=== PATIENT | male | born 1955 | race Caucasian/White ===

== ENCOUNTER 2024-12-15 09:34 | Outpatient (CLI) | payer MEDICARE ==
[2024-12-15 10:16] LABS: Estimated GFR - POC 59.0
== END 2024-12-15 09:35 | disposition home or self-care (01) ==
LOC: SCSMRI 09:34
PROVIDERS: ATTEND Urology
DX: R97.20 Elevated prostate specific antigen [PSA] (principal)
CPT/HCPCS: 36415; 72197; 82565